=== PATIENT | female | born 1935 | race Caucasian/White ===

== ENCOUNTER 2016-08-28 16:00 | Inpatient (IN) | payer MEDICARE, BC ==
[~2016-08-28] VITALS: Ht 157.5 cm; Wt 84.2 kg
--- NOTE | ~2016-08-28 | DS ---
PATIENT'S NAME: MORTEZA DANGELO [facility] AGE: 80 Y [address] ROOM: [place] [id number] LOCATION: [facility] ADMIT DATE: 09/03/2016 Discharge Summary DISCHARGE DATE: 09/05/2016 FAMILY PHYSICIAN: Amy Paze MD ATTENDING PHYSICIAN: Giancarlo Bach PRIMARY DIAGNOSIS: Osteoarthritis, right hip. SECONDARY DIAGNOSIS: Not applicable. PROCEDURE PERFORMED: Right total hip arthroplasty. HISTORY: The patient is a 80-year-old, who presents with advanced right hip degenerative joint disease and associated severely compromised activities of daily living. The patient has decided to proceed with total right hip arthroplasty after having been thoroughly counseled regarding the risks, benefits, limitations and alternatives. Please refer to the outpatient clinic notes and admission history and physical for this patient. HOSPITAL COURSE: The patient underwent a total right hip arthroplasty on 09/03/2016 without complications. Spinal anesthesia plus subcutaneous and periarticular local anesthesia was utilized. The patient received 24 hours of perioperative prophylactic antibiotics and remained hemodynamically stable, neurovascularly intact throughout the entire hospital course. The postoperative prophylactic deep venous thrombosis prophylaxis consisted of Xarelto, early mobilization and pneumatic compression devices. Daily physical therapy for gait training, transfer training, and reinforcement of hip dislocation precautions were received. The patient progressed well in physical therapy. On the date of discharge, 09/05/2016, the incision at the hip was healing well and showed no signs of infection. DISPOSITION: Home. DISCHARGE ACTIVITY: The patient is to bear weight as tolerated with strict hip dislocation precautions as instructed. There are to be no dressing changes. Dr. Bach is to be notified immediately if there is any increased pain, fevers, chills, erythema or drainage. DISCHARGE MEDICATIONS: 1. Xarelto 10 mg one tablet p.o. daily for 12 days for postoperative DVT prophylaxis. 2. Oxycodone 5 mg IR one to two tablets p.o. every 4 hours p.r.n. for pain. 3. Diazepam 5 mg one-half tablet p.o. every 6 hours p.r.n. for muscle spasms. PATIENT'S NAME: MORTEZA DANGELO [facility] AGE: 80 Y [address] ROOM: [address] [address] LOCATION: [facility] ADMIT DATE: 09/03/2016 Discharge Summary DISCHARGE DATE: 09/05/2016 FAMILY PHYSICIAN: Amy Paez MD ATTENDING PHYSICIAN: Giancarlo Bach She was then instructed to continue all her other pre-admission medications as instructed by her Internal Medicine doctor. FOLLOWUP: Follow up appointment is to be with Dr. Bach's office on 09/10/2016 for her initial postoperative evaluation. RAMÍREZ SALCIDO PA-C FOR MD EMMA COLEMANW/modl /[id number] d: 09/11/16 0323 t: 09/16/16 0910, DISCHARGE SUMMARY
--- NOTE | ~2016-08-28 | OR ---
PATIENT'S NAME: MORTEZA DANGELO [facility] AGE: 80 Y [address] ROOM: [place] [address] LOCATION: [facility] ADMIT DATE: 09/03/2016 OR/Procedure Report DISCHARGE DATE: FAMILY PHYSICIAN: Amy Paez MD ATTENDING PHYSICIAN: KALYANI CARTER SURGEON: Kalyani Carter MD VP STRATEGY: Drake Us CST/THERMAL SURFACING MACHINE OPERATOR and Kalyani Burleson. DATE OF PROCEDURE: 09/03/2016 PRE-OP DIAGNOSIS: Primary osteoarthritis, right hip. POST-OP DIAGNOSIS: Primary osteoarthritis, right hip. OPERATION: Right total hip arthroplasty. ANESTHESIA: Spinal anesthesia plus subcutaneous and periarticular local anesthesia (ropivacaine with epinephrine and Toradol). ESTIMATED BLOOD LOSS: Approximately 300 mL. DRAIN: None. SPECIMEN: None. COMPLICATIONS: None. IMPLANTS: 1. [place] Trident titanium, size 54 mm, hemispherical, uncemented acetabular shell with 1 dome hole cover and no screws. 2. Reginaldo X3 neutral acetabular polyethylene liner with 36 mm inner diameter. 3. [place] Accolade II, size 4, high offset, uncemented femoral component. 4. A 36 mm diameter metallic femoral head with -5 mm neck length. INDICATION FOR SURGERY: Morteza Dangelo is a 80-year-old female who presents with advanced right hip primary osteoarthritis and associated severely compromised activities of daily living. The patient has decided to proceed with hip replacement after having been thoroughly counseled regarding the associated risks, benefits, and limitations. We have specifically reviewed the risks and implications of infection, deep venous thrombosis, pulmonary embolism, mortality, neurovascular complications, blood transfusion (and associated potential for disease transmission or transfusion reaction), stiffness, instability, leg length discrepancy, mechanical deterioration of the components (due to wear and to loosening), and the potential need for PATIENT'S NAME: MORTEZA DANGELO [facility] AGE: 80 Y [address] ROOM: [place] [address] LOCATION: [facility] ADMIT DATE: 09/03/2016 OR/Procedure Report DISCHARGE DATE: FAMILY PHYSICIAN: Amy Paez MD ATTENDING PHYSICIAN: KALYANI CARTER revision. DESCRIPTION OF PROCEDURE: The patient was positioned in a lateral decubitus position with the right side up after administration of anesthesia and prophylactic antibiotics. An axillary roll was placed and the non-operative leg was well padded. The pelvis was locked perpendicularly to the floor on a pegboard. The right hip and entire operative extremity were prepped and draped with vigilant sterile technique. The patient's name as well as the intended operative side and procedure were confirmed with a verbal time-out involving myself, the circulating nurse, the scrub nurse, and the anesthesiologist. The right hip was approached through a standard posterolateral incision. The fascia nimesh and the gluteus dharmesh fascia were sharply divided in line with the overlying skin incision. The sciatic nerve was identified and was vigilantly protected throughout the entire case. The short external rotators and posterior capsule were divided from their respective femoral insertions and tagged with four #1 Ethibond sutures for later repair. The hip was posteriorly dislocated with combined flexion, adduction, and internal rotation. The femoral neck osteotomy was performed with an oscillating saw. Inspection of the femoral head demonstrated full-thickness loss of articular cartilage throughout the majority of its weightbearing surface. There was a small osteophyte around the periphery of the femoral head. There was no femoral head collapse. Circumferential acetabular exposure was obtained. Inspection of the acetabulum demonstrated a large effusion consisting of benign-appearing translucent synovial fluid. There were no loose bodies. There was no dysplasia. There was full-thickness loss of articular cartilage throughout the majority of the dome. There was coxa-profunda. There was associated pincer impingement morphology. The subchondral bone was extremely sclerotic. Remnants of the acetabular labrum were sharply thoroughly excised. The acetabulum was sequentially progressively reamed up to 53 mm with hemispherical power reamers. The final acetabular shell was impacted into position in 20 degrees of anteversion and 45 degrees of inclination. An excellent press-fit was obtained. No supplemental dome screw fixation was necessary. A neutral trial liner was inserted. Attention was next focused upon femoral preparation. The femoral canal initiator was utilized. No reaming was performed (except for with a canal finder). The femoral canal was subsequently sequentially progressively broached up to a size 4. The size 4 broach obtained excellent axial and rotational stability. Trial reductions with the above specified construct PATIENT'S NAME: MORTEZA DANGELO [facility] AGE: 80 Y [address] ROOM: [place] [address] LOCATION: N ADMIT DATE: 09/03/2016 OR/Procedure Report DISCHARGE DATE: FAMILY PHYSICIAN: Amy Paez MD ATTENDING PHYSICIAN: KALYANI CARTER yielded acceptable stability and acceptable reproduction of leg length and offset. All trial components were removed. The final acetabular liner was inserted with excellent circumferential visualization of its locking mechanism to assure adequate deployment. The final femoral component was impacted into position. The femoral component achieved excellent axial and rotational stability. The trunnion of the femoral component was vigilantly protected prior to placement of the femoral head. The trunnion of the femoral component was thoroughly cleaned and dried prior to placement of the femoral head. The incision was thoroughly irrigated with bacteriostatic pulsatile saline lavage multiple times throughout the case. The entire joint space was thoroughly inspected and thoroughly irrigated to assure that there was no residual debris of any sort. A final reduction was then performed. After final reduction, the hip could be firmly externally rotated in full extension and zero degrees of abduction without anterior subluxation. In neutral rotation and zero degrees of abduction, the hip could be firmly flexed to 120 degrees without instability. At 90 degrees of flexion and zero degrees abduction, the hip could be internally rotated to 65 degrees before there was any hint of posterior subluxation. The posterior capsule and short external rotators were repaired through two drill holes in the posterior aspect of the greater trochanter. The fascia nimesh and gluteus dharmesh fascia were closed with multiple simple and [id number] interrupted # 1 Ethibond and #1 Vicryl sutures. Subcutaneous tissues were thoroughly re-irrigated with bacteriostatic pulsatile saline lavage. Subcutaneous tissues were re-approximated with simple buried interrupted #0 Vicryl sutures. The skin was closed with superficial buried interrupted 2-0 Vicryl sutures followed by a running subcuticular 3-0 Monocryl suture, followed by Octylseal, followed by Steri-Strips with benzoin, followed by an occlusive Mepilex dressing. There were no intra-operative complications. MD JUAN ANTONIO COLEMAN/colette [facility] 80 Y [address] ROOM: [address] [address] LOCATION: [facility] ADMIT DATE: 09/03/2016 OR/Procedure Report DISCHARGE DATE: FAMILY PHYSICIAN: Amy Paez MD ATTENDING PHYSICIAN: KALYANI CARTER /[id number] d: 09/04/16252 t: 09/12/162035, OPERATIVE SUMMARY
[~2016-08-28 16:00] MED LIST: ASPIRIN EC81 MG PO; LUTEIN20 MG PO
[2016-09-05] MEDS ORDERED: TYLENOL EXTRA500 MG PO (13:45)
[2016-09-05] MEDS ORDERED: COLACE100 MG PO (13:46)
[2016-09-05] MEDS ORDERED: MIRALAX17 GM PO (13:47)
[2016-09-05] MEDS ORDERED: XARELTO10 MG PO (13:48)
[2016-09-05] MEDS ORDERED: VALIUM5 MG PO (13:49)
[2016-09-05] MEDS ORDERED: ROXICODONE 5MG (5 MG PO (13:54)
== END 2016-09-05 15:00 | disposition disaster alternative care site (69) | DRG 470 ==
LOC: G3N 09-03 08:47
PROVIDERS: ADMIT Orthopaedic Surgery
PROC: 0SR90JA Replacement of Right Hip Joint with Synthetic Substitute, Uncemented, Open Approach (ICD-10-PCS; principal; 2016-09-03)
DX: M16.11 Unilateral primary osteoarthritis, right hip (principal); R03.1 Nonspecific low blood-pressure reading; Z96.653 Presence of artificial knee joint, bilateral; Z79.82 Long term (current) use of aspirin
CPT/HCPCS: C1776; J1170; J1885; J2001; J2405; J2795; J7030; J7120

== ENCOUNTER → 2016-08-29 | Outpatient (CLI) | payer MEDICARE, BC ==
[~2016-08-29] MED LIST changes: +COLACE100 MG PO; +MIRALAX17 GM PO; +ROXICODONE 5MG (5 MG PO; +TYLENOL EXTRA500 MG PO; +VALIUM5 MG PO; +XARELTO10 MG PO
== END | disposition disaster alternative care site (69) ==
LOC: GNJRC 09:56
DX: Z01.812 Encounter for preprocedural laboratory examination (principal); M16.11 Unilateral primary osteoarthritis, right hip